=== PATIENT | male | born 2000 | race Caucasian/White ===

== ENCOUNTER 2021-10-19 16:18 | Outpatient (CLI) | payer BC, SELFPAY ==
[2021-10-19 17:35] LABS: Absolute Lymphocyte Count 2.88 X10^3/uL (0.83-4.51); Absolute Neutrophil Count 4.2 X10^3/uL (2.0-7.7); Basophil# 0.04 X10^3/uL; Basophil% 0.5 % (0-1); Eosinophil# 0.18 X10^3/uL; Eosinophils% 2.2 % (0-5); Hematocrit 45.6 % (40-54); Hemoglobin 16.7 g/dL (13.0-16.5); Lymphocyte # 2.88 X10^3/ul (0.83-4.51); Lymphocyte % 35.5 % (19-41); Mean Corp Hgb Conc 36.6 g/dL (32-36); Mean Corpuscular Hgb 31.4 pg (27.0-32.0); Mean Corpuscular Volume 85.7 fL (80-94); Mean Platelet Vol. 11.4 fl (6.2-12.0); Monocyte# 0.77 X10^3/uL; Monocyte% 9.5 % (0-10); NRBC Flagged by Analyzer 0 % (0-5); Neutrophil # 4.22 X10^3/uL (2.7-7.7); Neutrophil % 52.1 % (47-70); Platelet Count 227 K/mm3 (150-450); RBC Distribution Width CV 11.8 % (11.6-14.6); RBC Distribution Width SD 36.6 fl (35.1-43.9); Red Blood Count 5.32 M/mm3 (4.6-6.2); White Blood Count 8.1 K/mm3 (4.4-11.0)
[2021-10-19 18:13] LABS: AST(SGOT) 20 U/L (15-37); Alanine Aminotransfer ALT/SGPT 39 U/L (16-61); Alkaline Phosphatase 76 U/L (45-117); Anion Gap 6 (5-15); BUN 10 mg/dL (7-18); BUN/Creat Ratio 10.5 RATIO (10-20); Calcium,Total 8.9 mg/dL (8.5-10.1); Chloride 107 mmol/L (98-107); Creatinine, Serum 0.95 mg/dL (0.70-1.30); EST Glomerular Filtration Rate 105 mL/min (>60); Est Glom Filt Rate - Afr Amer 127 mL/min (>60); Globulin 3.9 g/dL (2.2-4.2); Glucose 95 mg/dL (74-106); Potassium 3.8 mmol/L (3.5-5.1); Protein, Total 7.9 g/dL (6.4-8.2); Sodium Level 138 mmol/L (136-145)
[2021-10-22 09:02] LABS: Hepatitis B Surface Antibody Non-Reactive
== END 2021-10-19 23:59 | disposition home or self-care (01) ==
LOC: MTLAB 16:24
PROVIDERS: PCP Nurse Practitioner Family; Referring Provider Physician Assistant Medical; Visit Provider Physician Assistant Medical
DX: L40.0 Psoriasis vulgaris (principal); Z79.899 Other long term (current) drug therapy
CPT/HCPCS: 36415; 80053; 80074; 85025; 86480; 86706; 86708

== ENCOUNTER → 2021-12-04 | Outpatient (CLI) | payer BC, SELFPAY ==
[2021-12-06 20:08] LABS: QNTFERON TB Mitogen Value > 10.00 IU/mL (.); QNTFERON TB Nil Value 0 IU/mL (.); QNTFERON TB1+ Ag Value 0.11 IU/mL (.)
[2021-12-07 13:38] LABS: QNTIFERON TB Positive Criteria Negative (Negative)
== END | disposition home or self-care (01) ==
LOC: MTLAB 15:09
PROVIDERS: PCP Nurse Practitioner Family; Referring Provider Physician Assistant Medical; Visit Provider Physician Assistant Medical
DX: L40.0 Psoriasis vulgaris (principal); R52 Pain, unspecified; Z79.899 Other long term (current) drug therapy
CPT/HCPCS: 36415; 86480

== ENCOUNTER 2025-02-23 10:33 | Day surgery (SDC) | payer BC, SELFPAY ==
[2025-02-23] VITALS (9 sets, daily range): BP systolic 111–156; BP diastolic 68–93; PULSE 59–82; RESP 16–20; TEMP 36.1–36.7; O2SAT 94–99; BMI 34.0
--- NOTE | 2025-02-23 10:55 | PCM.PRE.AN2 ---
ASA Classification* ASA Classification ASA Classification: 2 Assessment & Plan Anesthesia* Anesthesia Assessment Anesthesia Assessment: Discussed sedation and/or anesthesia options, risks, benefits, and alternatives with patient/parents/legal guardian/POA. Questions invited. The patient/parents/legal guardian/POA seems to understand and agrees to proceed with anesthesia plan. Reviewed the physical assessment, medical history, allergy history and patient home medications list prior to surgery/procedure/anesthetic and documented any changes. Performed airway and anesthesia risk assessments. Anesthesia Type Anesthesia Type: MAC History Source History Obtained from:: Patient and Chart (Family Hx of Malignant Hyperthermia? (Mom)) Anesthesia Focused Assessment* Oxygen Delivery Method: Room Air Airway Assessment Mouth opens: >3 cm Mallampati Score: II Teeth Condition: Intact Neck Range of motion (ROM): Full ROM Comment: Full [place] Labs Anesthesia Preop lab: CBC WBC 8.1 K/mm3 (4.4-11.0) 10/19/21 16:25 10/19/21 RBC 5.32 M/mm3 (4.6-6.2) 10/19/21 16:25 10/19/21 Hgb 16.7 g/dL (13.0-16.5) H 10/19/21 16:25 10/19/21 Hct 45.6 % (40-54) 10/19/21 16:25 10/19/21 Plt Count 227 K/mm3 (150-450) 10/19/21 16:25 10/19/21 CHEMISTRY Potassium 3.8 mmol/L (3.5-5.1) 10/19/21 16:25 10/19/21 Sodium 138 mmol/L (136-145) 10/19/21 16:25 10/19/21 BUN 10 mg/dL (7-18) 10/19/21 16:25 10/19/21 Creatinine 0.95 mg/dL (0.70-1.30) 10/19/21 16:25 10/19/21 Glucose 95 mg/dL (74-106) 10/19/21 16:25 10/19/21 COAG Pre-Assessment Diagnosis/Proposed Procedure Planned Operative Procedure(s): COLONOSCOPY, EGD Anesthesia History 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 When Was Last Pacemaker Check QUESTION #4 FULL TEXT: You/Your Family Experience fever (hyperthermia) with Anesthesia Last Oral Intake Last Oral intake: Last Oral Intake NPO since Meds taken in AM with sips of water? Meds patient instructed to take am of surgery PONV PONV - mobile heavy equipment mechanic: PONV - mobile heavy equipment mechanic Female No 02/18/25 09:47 HX of Motion Sickness No 02/18/25 09:47 HX of N/V After Surgery No 02/18/25 09:47 Non-Smoker No 02/18/25 09:47 Duration of Surgery greater No 02/18/25 09:47 than 60 minutes Number of Risk Factors PONV Score Respiratory Assessment Respiratory Assessment - mobile heavy equipment mechanic: Respiratory Tract Infection Hx - mobile heavy equipment mechanic Hx Respiratory Tract Infection No 02/18/25 09:47 STOP Sleep Apnea STOP Sleep Apnea - mobile heavy equipment mechanic: STOP Sleep Apnea - mobile heavy equipment mechanic Hx Hypertension Yes: NO MEDS 02/18/25 09:47 Hx Sleep Apnea Yes 02/18/25 09:47 CPAP Yes: NONCOMPLIANT 02/18/25 09:47 BIPAP No 02/18/25 09:47 Do you snore loudly (louder No 02/18/25 09:47 than talking or can be heard Do you often feel tired/ No 02/18/25 09:47 fatigued/ sleepy during daytime? Has anyone observed you stop No 02/18/25 09:47 breathing during sleep? STOP Results Positive 02/18/25 09:47 QUESTION #5 FULL TEXT : Do you snore loudly (louder than talking or can be heard through closed doors)? Tobacco Use History Tobacco Use History - mobile heavy equipment mechanic: Tobacco Use History - mobile heavy equipment mechanic Tobacco Use Smoking Status Current every day smoker 02/18/25 09:47 Hx Tobacco Use Yes 02/18/25 09:47 Years Smoking Packs Smoked per Day Smoking Cessation Date was within the last 15 years Hx Smoking Cessation Date Hx Smoking Cessation Counseling Hematologic Medial History Hematologic Hx - mobile heavy equipment mechanic: Hematologic Medical Hx - linoleum installer Hx of Blood Transfusion No 02/18/25 09:47 Hx of Transfusion in last 3 No 02/18/25 09:47 Months Date of Last Transfusion (if within last 3 months) Ever experience any problems No 02/18/25 09:47 with transfusion(s)? Specify any problems Hx of Preganancy in last 3 N/A 02/18/25 09:47 Months Nurse Filling Out Transfusion [id number] 02/18/25 09:47 & Questions: Date: 02/18/25 02/18/25 09:47 Time: 09:51 02/18/25 09:47 Patient unable to answer at this time (ie. confused, unrespo /Reproduction History /Reproductive History - mobile heavy equipment mechanic: /Reproductive Hx- mobile heavy equipment mechanic Hx Now Gestational Age (in weeks): EDC: Hx Hx Para Hx Section SAB PFSH Medical History Depression Anxiety Marijuana use Cirrhosis Polycythemia TBI (traumatic brain injury) Injury of head and neck Smoker Gastric reflux Home Medications ?Medication ?Instructions ?Recorded ?Last Taken ?Type azelastine 137 mcg (0.1 %) nasal 2 spray intranasal BID PRN allergy 12/31/24 Unknown History spray symptoms diclofenac sodium 100 mg 100 mg PO QDAY 12/31/24 02/22/25 History tablet,extended release 24 hr ergocalciferol (vitamin D2) 1,250 1,250 mcg PO QWEEK 12/31/24 02/22/25 History mcg (50,000 unit) capsule famotidine 20 mg tablet 20 mg PO BID 12/31/24 Unknown History omeprazole 40 mg capsule,delayed 40 mg PO QDAY 12/31/24 Unknown History release fenofibrate 160 mg tablet 160 mg PO DAILY 02/18/25 02/22/25 History Allergy/AdvReac Type Severity Reaction Status Date / Time pollen extracts Allergy RUNNY NOSE Verified 02/23/25 10:43 dicyclomine (From Bentyl) AdvReac Rash Verified 02/23/25 10:43 Surgical History History of tonsillectomy History of surgery on arm H/O hand surgery Social History Smoking Status: Current every day smoker tobacco type: e-cigarettes Review of Systems (Anesthesia) ROS Narrative System reviewed and no additional complaints, except as documented.
[2025-02-23] MEDS: Lactated Ringers 1,000 ML 15 ML IV (11:03)
--- NOTE | 2025-02-23 11:45 | EGD_PTH ---
PATIENT: ARASH GARCIA LOC: EN U#:[id number] AGE/SX: 24/M ROOM: RE02/23/[address]: Dr. Lukas Han DO : 2000 BED: DIS: 02/23/2025 SPEC #: [id number] RECD: 02/23/25 14:33 STATUS: PIPO REJake #: [id number] BLOSSOM: 02/23/25 11:[address]: Lukas Han DEPT: SURGICAL PATHOLOGY RECD BY: Mayito Marroquin ENTERED: 02/23/25 15:07 SP TYPE: EGD BIOPSY OT DR: Pilar Vides, DIRECT MAIL MANAGER-C Tissues: A - Duodenum, NOS B - Gastric mucous membrane C - Ileum, NOS D - COLON BIOPSY Procedures: Immunohistochemical Stains Surgery Specimen Level IV HEADER OPERATION: Colonoscopy, EGD with biopsy PRE-OP DIAGNOSIS: GERD, alternating constipation and diarrhea TISSUE SUBMITTED: A- Duodenum biopsy, B- Gastric body biopsy, C- Terminal ileum biopsy, D- Random colon biopsy MICROSCOPIC DIAGNOSIS A. Duodenum, biopsy: - Normal villous architecture with Angi gland hyperplasia. - Negative for increased intraepithelial lymphocytes. B. Gastric body, biopsy: - Chronic gastritis. - IHC negative for H.pylori organisms. C. Terminal ileum, biopsy: - Normal villous morphology with prominent mucosal lymphoid tissue, favor reactive. D. Colon, random, biopsy: - No specific pathologic change. - The histologic features of microscopic colitis are not demonstrated. MICROSCOPIC DESCRIPTION Slides are reviewed. All matched controls reacted appropriately. These tests were developed and their performance characteristics determined by [facility]. They may not have been cleared or approved by the U.S. Food and Drug Administration. The FDA has determined that such clearance or approval is not necessary.? The above immunohistochemical/dualISH?markers are reviewed by the Pathologist. GROSS DESCRIPTION A. Received in fixative is one container labeled with the patient's name and designated Duodenum biopsy. The specimen consists of two irregular fragments of light oliva soft tissue that in aggregate measure 0.3 and 0.5 cm. The specimen is totally submitted in one cassette. B. Received in fixative is one container labeled with the patient's name and designated Gastric body biopsy. The specimen consists of two irregular fragments of light oliva soft tissue that in aggregate measure 0.3 and 0.4 cm. The specimen is totally submitted in one cassette. C. Received in fixative is one container labeled with the patient's name and designated Terminal ileum biopsy. The specimen consists of two irregular fragments of light oliva soft tissue that in aggregate measure 0.4 and 0.7 cm. The specimen is totally submitted in one cassette. D. Received in fixative is one container labeled with the patient's name and designated Random colon biopsy. The specimen consists of multiple irregular fragments of light oliva soft tissue that in aggregate measure 1.3 x 0.4 x 0.1 cm. The specimen is totally submitted in one cassette. [place] 02/23/2025 CPT:76095r8,09597
--- NOTE | 2025-02-23 11:47 | PCM.HP.STD ---
HPI - General General Date of Admission: 02/23/25 Date of Service: 02/23/25 Chief Complaint: Alternating diarrhea and constipation HPI Narrative ROMERO GARCIA, is a 24 M who presents with the Chief Complaint: alternating constipation and diarrhea Pt referred to I form PCP for issues with constipation and diarrhea. Pt has struggled with inconsistent bowels for many years but now having abd bloating and pain. Pain is in the upper abdomen and worse after eating. He takes omeprazole and famotidine for heartburn. He notes he will have constipation for a few hours or up to a day. He has loose stools after eating on occasion. He says it is 50/50 whether he will have constipation or diarrhea. He has seen blood in his stool a few times but has resolved He has a hx of psoriatic arthritis and psoriasis. He was treated with Taltz in the past but no longer on. Last colonoscopy and EGD; about 2 years ago for nausea and vomiting, No findings PFSH Medical History Depression Anxiety Marijuana use Cirrhosis Polycythemia TBI (traumatic brain injury) Injury of head and neck Smoker Gastric reflux Home Medications ?Medication ?Instructions ?Recorded ?Last Taken ?Type azelastine 137 mcg (0.1 %) nasal 2 spray intranasal BID PRN allergy 12/31/24 Unknown History spray symptoms diclofenac sodium 100 mg 100 mg PO QDAY 12/31/24 02/22/25 History tablet,extended release 24 hr ergocalciferol (vitamin D2) 1,250 1,250 mcg PO QWEEK 12/31/24 02/22/25 History mcg (50,000 unit) capsule famotidine 20 mg tablet 20 mg PO BID 12/31/24 Unknown History omeprazole 40 mg capsule,delayed 40 mg PO QDAY 12/31/24 Unknown History release fenofibrate 160 mg tablet 160 mg PO DAILY 02/18/25 02/22/25 History Allergy/AdvReac Type Severity Reaction Status Date / Time pollen extracts Allergy RUNNY NOSE Verified 02/23/25 10:43 dicyclomine (From Bentyl) AdvReac Rash Verified 02/23/25 10:43 Surgical History History of tonsillectomy History of surgery on arm H/O hand surgery Social History Smoking Status: Current every day smoker tobacco type: e-cigarettes ROS Constitutional Constitutional: Denies fatigue, fever(s), poor appetite, weight gain or weight loss Gastrointestinal Gastrointestinal: Denies belching, bloating, change in bowel habits, change in stool character, chewing difficulty, coffee ground emesis, constipation, cramping, diarrhea, dyspepsia, dysphagia, early satiety, excessive flatus, fecal incontinence, heartburn, hematemesis, hematochezia, hemorrhoids, loose stools, melena, nausea, odynophagia, rectal bleeding, tenesmus, vomiting or weight changes Vital Signs Vital Signs Vital Signs: 02/23/25 10:59 02/23/25 10:59 02/23/25 11:00 Temperature 97.2 F L Temperature Source Temporal Pulse Rate 68 Respiratory Rate 17 Respiratory Pattern Normal Blood Pressure 156/92 H Blood Pressure Mean 113 Blood Pressure Source Monitor Blood Pressure Position Semi-Fowlers Blood Pressure Location Right Arm Pulse Ox 99 Oxygen Delivery Method Room Air Room Air Weight Weight: 264 lb 8.875 oz Body Mass Index (BMI) 34.0 Physical Exam Const alert, oriented x3, no apparent distress and healthy appearing General Appearance: cooperative GI normal to inspection, nondistended, normoactive bowel sounds, soft to palpation, non-tender and non-distended Percussion: normal to percussion Rectal Exam: deferred Assessment & Plan Assessment/Plan (1) GERD (gastroesophageal reflux disease): (2) Alternating constipation and diarrhea: PLAN: Assessment and Plan Assessment and Plan (1) Abdominal symptoms: (2) GERD (gastroesophageal reflux disease): Status: Acute (3) Alternating constipation and diarrhea: Status: Acute Plan: Romero is a 24 yo male pt here today today for evaluation of constipation alternating with diarrhea for many years. This has worsened recently and is now associated with abd bloating and pain. Pt did have normal EGD and colonoscopy about 2 years ago. With hx of psoriatic arthritis and psoriasis I have concern for other autoimmune constipation affecting the GI tract including IBD or celiac. I will order blood work with CBC, CMP, ESR, CRP, celiac panel and food allergy panel. He will also complete stool testing for inflammation or infection. Will consider repeat endoscopy pending results Will consider further work up pending results. IN the interim he will start a daily fiber supplement. -Start fiber -CBC, CMP, ESR, CRP, Celiac and food allergy -Stool testing for infection or inflammation -Consider endoscopy -f/u after testing Orders: Orders Celiac Disease Profile Today K21.9 - Gastro-esophageal reflux disease without esophagitis, R19.8 - Other specified symptoms and signs involving the digestive system and abdomen Allergen, Food Profile 14 Today K21.9 - Gastro-esophageal reflux disease without esophagitis, R19.8 - Other specified symptoms and signs involving the digestive system and abdomen Comprehensive Metabolic Profil Today K21.9 - Gastro-esophageal reflux disease without esophagitis, R19.8 - Other specified symptoms and signs involving the digestive system and abdomen CBC W/Diff, Automated Today K21.9 - Gastro-esophageal reflux disease without esophagitis, R19.8 - Other specified symptoms and signs involving the digestive system and abdomen Erythrocyte Sed Rate Today K21.9 - Gastro-esophageal reflux disease without esophagitis, R19.8 - Other specified symptoms and signs involving the digestive system and abdomen CRP Today K21.9 - Gastro-esophageal reflux disease without esophagitis, R19.8 - Other specified symptoms and signs involving the digestive system and abdomen Calprotectin, Stool Today K21.9 - Gastro-esophageal reflux disease without esophagitis, R19.8 - Other specified symptoms and signs involving the digestive system and abdomen CDIFF (PCR) Today K21.9 - Gastro-esophageal reflux disease without esophagitis, R19.8 - Other specified symptoms and signs involving the digestive system and abdomen Giardia Lamblia, Stool EIA Today K21.9 - Gastro-esophageal reflux disease without esophagitis, R19.8 - Other specified symptoms and signs involving the digestive system and abdomen ENTERIC PATHOGEN PANEL STOOL Today K21.9 - Gastro-esophageal reflux disease without esophagitis, K58.9 - Irritable bowel syndrome, unspecified, R19.8 - Other specified symptoms and signs involving the digestive system and abdomen Ova and Parasites [id number] Today K21.9 - Gastro-esophageal reflux disease without esophagitis, K58.9 - Irritable bowel syndrome, unspecified, R19.8 - Other specified symptoms and signs involving the digestive system and abdomen Stool Lactoferrin/WBC Today K21.9 - Gastro-esophageal reflux disease without esophagitis, K58.9 - Irritable bowel syndrome, unspecified, R19.8 - Other specified symptoms and signs involving the digestive system and abdomen
--- NOTE | 2025-02-23 12:38 | PCM.POST.ANE ---
Anesthesia: Postop Eval I Current Vital Signs Temperature: 97 F Pulse Rate: 79 Blood Pressure: 114/68 Respiratory Rate: 16 Pulse Ox: 97 Oxygen Delivery Method: Room Air Assessment Airway patent: Yes Spontaneous unlabored respirations: Yes Mental status: Asleep nausea: No Vomiting: No Anesthesia Complication: No Fluid Hydration Crystalloid volume administer (ml): 600 Total IV fluid infused: 600 Progress Note Anesthesia document: Postop Eval 1 completed: Yes
--- NOTE | 2025-02-23 12:39 | OP.EGD_ITS ---
Patient Name: Romero Munoz Procedure Date: 02/23/2025 11:49 AM Date of : 2000 Age: 24 Procedure: Upper GI endoscopy Indications: Epigastric abdominal pain, Functional Dyspepsia, Failure to respond to medical treatment Providers: Lukas Han DO Referring MD: Pilar Vides [email or web address] Medicines: Monitored Anesthesia Care Patient Profile: This is a 24 year old male. Refer to note in patient chart for documentation of history and physical. Patient has symptoms of chronic abdominal cramping, chronic abdominal distention, chronic epigastric abdominal pain, chronic heartburn and chronic nausea. Complications: No immediate complications. Procedure: Pre-Anesthesia Assessment: - Prior to the procedure, a History and Physical was performed, and patient medications and allergies were reviewed. The patient is competent. The risks and benefits of the procedure and the sedation options and risks were discussed with the patient. All questions were answered and informed consent was obtained. Patient identification and proposed procedure were verified by the physician in the pre-procedure area. Mental Status Examination: alert and oriented. Airway Examination: normal oropharyngeal airway and neck mobility. Respiratory Examination: clear to auscultation. CV Examination: normal. Prophylactic Antibiotics: The patient does not require prophylactic antibiotics. Prior Anticoagulants: The patient has taken no anticoagulant or antiplatelet agents. ASA Grade Assessment: II - A patient with mild systemic disease. After reviewing the risks and benefits, the patient was deemed in satisfactory condition to undergo the procedure. The anesthesia plan was to use monitored anesthesia care (MAC). Immediately prior to administration of medications, the patient was re-assessed for adequacy to receive sedatives. The heart rate, respiratory rate, oxygen saturations, blood pressure, adequacy of pulmonary ventilation, and response to care were monitored throughout the procedure. The physical status of the patient was re-assessed after the procedure. After obtaining informed consent, the endoscope was passed under direct vision. Throughout the procedure, the patient's blood pressure, pulse, and oxygen saturations were monitored continuously. The pediatric colonoscope was introduced through the mouth, and advanced to the fourth part of the duodenum. Small bowel enteroscopy was deemed necessary. The upper GI endoscopy was accomplished without difficulty. The patient tolerated the procedure well. Scope In: 12:03:41 PM Scope Out: 12:07:45 PM Total Procedure Duration Time 0 hours 4 minutes 4 seconds Findings: The examined esophagus was normal. Suspect gastroparesis due to absence of peristalsis, patient symptoms and retained gastric contents. Biopsies were taken with a cold forceps for histology. Biopsies were taken with a cold forceps for Helicobacter pylori testing. Verification of patient identification for the specimen was done. Estimated blood loss was minimal. Patchy mildly erythematous mucosa without active bleeding and with no stigmata of bleeding was found in the entire duodenum. Biopsies were taken with a cold forceps for histology. Verification of patient identification for the specimen was done. Estimated blood loss was minimal. Impression: - Normal esophagus. - Gastroparesis. Biopsied. - Erythematous duodenopathy. Biopsied. Recommendation: - Discharge patient to home. - Resume previous diet. - Continue present medications. - Await pathology results. Procedure Code(s): --- Professional --- 79738, Small intestinal endoscopy, enteroscopy beyond second portion of duodenum, not including ileum; with biopsy, single or multiple CPT copyright 2021 [employer]. All rights reserved. The codes documented in this report are preliminary and upon heating and cooling systems engineer review may be revised to meet current compliance requirements. Lukas Han DO 02/23/2025 12:39:01 PM This report has been signed electronically. Number of Addenda: 0 Note Initiated On: 02/23/2025 11:49 AM
--- NOTE | 2025-02-23 12:39 | OP.PROVAT_ITS ---
02/23/2025 Pilar Vides, Aditya-c Re : Upper GI endoscopy procedure for Romero Munoz Dear Peewee This procedure was performed on Sunday, February 23, 2025. My impressions and recommendations are as follows: Impressions : - Normal esophagus. - Gastroparesis. Biopsied. - Erythematous duodenopathy. Biopsied. Recommendations : - Discharge patient to home. - Resume previous diet. - Continue present medications. - Await pathology results. My findings are described in the full procedure note, which is enclosed. If I can be of further assistance, please feel free to contact me at . Sincerely, Lukas Han, 02/23/2025 12:39:01 PM This report has been signed electronically.
--- NOTE | 2025-02-23 12:42 | OP.COLON_ITS ---
Patient Name: Romero Munoz Procedure Date: 02/23/2025 12:07 PM Date of : 2000 Age: 24 Procedure: Colonoscopy Indications: Epigastric abdominal pain, Clinically significant diarrhea of unexplained origin Providers: Lukas Han DO Referring MD: Pilar Vides [email or web address] Medicines: Monitored Anesthesia Care Patient Profile: This is a 24 year old male. Refer to note in patient chart for documentation of history and physical. Patient has symptoms of chronic abdominal cramping, chronic abdominal distention, chronic epigastric abdominal pain, chronic heartburn and chronic nausea. Last Colonoscopy: more than 10 years ago. Complications: No immediate complications. Procedure: Pre-Anesthesia Assessment: - Prior to the procedure, a History and Physical was performed, and patient medications and allergies were reviewed. The patient is competent. The risks and benefits of the procedure and the sedation options and risks were discussed with the patient. All questions were answered and informed consent was obtained. Patient identification and proposed procedure were verified by the physician in the pre-procedure area. Mental Status Examination: alert and oriented. Airway Examination: normal oropharyngeal airway and neck mobility. Respiratory Examination: clear to auscultation. CV Examination: normal. Prophylactic Antibiotics: The patient does not require prophylactic antibiotics. Prior Anticoagulants: The patient has taken no anticoagulant or antiplatelet agents. ASA Grade Assessment: II - A patient with mild systemic disease. After reviewing the risks and benefits, the patient was deemed in satisfactory condition to undergo the procedure. The anesthesia plan was to use monitored anesthesia care (MAC). Immediately prior to administration of medications, the patient was re-assessed for adequacy to receive sedatives. The heart rate, respiratory rate, oxygen saturations, blood pressure, adequacy of pulmonary ventilation, and response to care were monitored throughout the procedure. The physical status of the patient was re-assessed after the procedure. After I obtained informed consent, the scope was passed under direct vision. Throughout the procedure, the patient's blood pressure, pulse, and oxygen saturations were monitored continuously. The pediatric colonoscope was introduced through the anus and advanced to the terminal ileum. The colonoscopy was performed without difficulty. The patient tolerated the procedure well. The quality of the bowel preparation was adequate. The terminal ileum, ileocecal valve, appendiceal orifice, and rectum were photographed. Scope In: 12:09:49 PM Scope Withdrawal Time 0 hours 15 minutes 15 seconds Scope Out: 12:28:43 PM Total Procedure Duration Time 0 hours 18 minutes 54 seconds Findings: The perianal and digital rectal examinations were normal. An area of mildly congested mucosa was found in the sigmoid colon, in the transverse colon and in the ascending colon. Biopsies were taken with a cold forceps for histology. Verification of patient identification for the specimen was done. Estimated blood loss was minimal. Patchy mild inflammation characterized by friability was found in the terminal ileum. Biopsies were taken with a cold forceps for histology. Verification of patient identification for the specimen was done. Estimated blood loss was minimal. Impression: - Congested mucosa in the sigmoid colon, in the transverse colon and in the ascending colon. Biopsied. - Mild inflammation was found in the ileum secondary to ileitis. Biopsied. Recommendation: - Repeat colonoscopy for surveillance based on pathology results. - Continue present medications. Procedure Code(s): --- Professional --- 11168, Colonoscopy, flexible; with biopsy, single or multiple CPT copyright 2021 [employer]. All rights reserved. The codes documented in this report are preliminary and upon projection engineer review may be revised to meet current compliance requirements. Lukas Han DO 02/23/2025 12:42:14 PM This report has been signed electronically. Number of Addenda: 0 Note Initiated On: 02/23/2025 12:07 PM
--- NOTE | 2025-02-23 12:42 | OP.PROVAT_ITS ---
02/23/2025 Pilar Vides, Aditya-c Re : Colonoscopy procedure for Romero Munoz Dear Peewee This procedure was performed on Sunday, February 23, 2025. My impressions and recommendations are as follows: Impressions : - Congested mucosa in the sigmoid colon, in the transverse colon and in the ascending colon. Biopsied. - Mild inflammation was found in the ileum secondary to ileitis. Biopsied. Recommendations : - Repeat colonoscopy for surveillance based on pathology results. - Continue present medications. My findings are described in the full procedure note, which is enclosed. If I can be of further assistance, please feel free to contact me at . Sincerely, Lukas Han, 02/23/2025 12:42:14 PM This report has been signed electronically.
--- NOTE | 2025-02-23 13:19 | PCM.POSTANE2 ---
Anesthesia Postop Eval I Sum Postop Eval Completion status Anesthesia document: Postop Eval 1 completed: Yes Anesthesia Postop Eval I Summary Anesthesia Postop Eval I Summary: Anesthesia Postop Eval I: Assessment Summary Airway patent Yes 02/23/25 12:39 [email or web address] Spontaneous unlabored Yes 02/23/25 12:39 [email or web address] respirations Mental status Asleep 02/23/25 12:39 [email or web address] nausea No 02/23/25 12:39 [email or web address] Vomiting No 02/23/25 12:39 [email or web address] Anesthesia Postop Eval I: Fluid Summary Crystalloid volume administer 600 02/23/25 12:39 [email or web address] (ml) Colloids volume administered ( ml) Blood Product volume administered (ml) Total IV fluid infused 600 02/23/25 12:39 [email or web address] Anesthesia Postop Eval I: Summary Notes Anesthesia Complication No 02/23/25 12:39 [email or web address] Anesthesia Complication Comment: Post-operative progress note Anesthesia: Postop Eval II Evaluation Mental status: Awake Pain Level: 0 nausea: No Vomiting: No Progress Note Post-operative progress note: Doing well, meets discharge criteria Complications Anesthesia Complication: No
== END 2025-02-23 13:31 | disposition home or self-care (01) ==
LOC: EN 10:35 → AC 10:37
PROVIDERS: PCP Nurse Practitioner Family; Referring Provider Nurse Practitioner Family; Visit Provider Internal Medicine Gastroenterology
PROC: 0DJD8ZZ Inspection of Lower Intestinal Tract, Via Natural or Artificial Opening Endoscopic (ICD-10-PCS; CPT 45378; principal; 2025-02-23 11:40)
DX: K21.9 Gastro-esophageal reflux disease without esophagitis (principal); K29.50 Unspecified chronic gastritis without bleeding; K31.84 Gastroparesis; K31.89 Other diseases of stomach and duodenum; K59.00 Constipation, unspecified; R19.7 Diarrhea, unspecified; F17.290 Nicotine dependence, other tobacco product, uncomplicated; Z79.899 Other long term (current) drug therapy
CPT/HCPCS: 43239; 45380; 88305; 88342; J2405